=== PATIENT | female | born 1995 ===

== ENCOUNTER 2016-09-05 21:14 | Emergency (ER) | payer MEDICAID ==
[2016-09-05 21:23] VITALS: RESP 16
--- NOTE | 2016-09-05 22:32 | ED PDOC ---
HPI: Female Pain Time Seen by Provider: 09/05/16 21:47 Chief Complaint (Nursing): Female Genitourinary Chief Complaint (Provider): Pelvic Pain History Per: Patient History/Exam Limitations: no limitations Onset/Duration Of Symptoms: Days (7) Current Symptoms Are (Timing): Still Present Severity: Moderate Quality Of Discomfort: "Pain" Additional Complaint(s): Carolina Rodriges is a 21 y/o female presenting to the ER on 09/05/2016 with complaints of pelvic pain for one week. Patient states she was seen at [facility] in [place], [place], for similar symptoms. She was told she may be but a diagnosis was questionable. She had an ultrasound and Beta-HCG done which showed questionable findings and low levels, respectively. She was originally admitted that day for Bipolar Disorder but was clear for discharge after no findings were present. 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 She is also complaining of abdominal contractions as well as back pain but denies any vaginal bleeding, discharge, fever, or vomiting. This is the patient's first alleged . Past Medical History Reviewed: Historical Data, Nursing Documentation, Vital Signs Vital Signs: Last Vital Signs Temp 98.6 F 09/05/16 21:19 Pulse 94 H 09/05/16 21:19 Resp 16 09/05/16 21:19 BP 153/69 H 09/05/16 21:19 Pulse Ox 100 09/05/16 21:19 - Medical History PMH: Anemia - Surgical History Surgical History: No Surg Hx - Family History Family History: States: Unknown Family Hx - Social History Current smoker - smoking cessation education provided: No Alcohol: None Drugs: Denies - Allergies Allergies/Adverse Reactions: Allergies Allergy/AdvReac Type Severity Reaction Status Date / Time aloe vera Allergy RASH Verified 09/05/16 21:19 shrimp Allergy PAIN Verified 09/05/16 21:19 Review of Systems ROS Statement: Except As Marked, All Systems Reviewed And Found Negative Constitutional: Negative for: Fever Gastrointestinal: Negative for: Vomiting Genitourinary Female: Positive for: Pelvic Pain. Negative for: Vaginal Discharge, Vaginal Bleeding Musculoskeletal: Positive for: Back Pain Physical Exam - Reviewed Nursing Documentation Reviewed: Yes Vital Signs Reviewed: Yes - Physical Exam Appears: Positive for: Non-toxic, No Acute Distress Head Exam: Positive for: ATRAUMATIC, NORMOCEPHALIC Skin: Positive for: Normal Color. Negative for: Rash Eye Exam: Positive for: Normal appearance, EOMI, PERRL Neck: Positive for: Normal, Painless ROM, Supple Cardiovascular/Chest: Positive for: Regular Rate, Rhythm. Negative for: Murmur Respiratory: Positive for: Normal Breath Sounds. Negative for: Wheezing, Respiratory Distress Gastrointestinal/Abdominal: Positive for: Normal Exam, Soft. Negative for: Tenderness, Distended, Guarding Extremity: Positive for: Normal ROM. Negative for: Deformity, Swelling Neurologic/Psych: Positive for: Alert, Oriented. Negative for: Motor/Sensory Deficits - Laboratory Results Result Diagrams: 09/05/16 22:37 09/05/16 22:27 - ECG O2 Sat by Pulse Oximetry: 100 Medical Decision Making Medical Decision Makin:47 Initial Impression- Pelvic Pain. Differential diagnosis includes but is not limited to- ectopic , incomplete , threatened miscarriage, demise, UTI. Initial Plan- * Type and Screen * BMP * Serum * Urine Dip * Urine Preg * CBC w/ differential * US OB Transvaginal COMPARISON: No relevant prior studies available. FINDINGS: Gestation: A single intrauterine gestation is identified with a crown-rump length measuring 5 mm, corresponding to an approximate gestational age of 6 weeks and one day. The mean gestational sac size measures 17 mm, corresponding to an approximate gestational age of 6 weeks and 0 days. A yolk sac is detected. cardiac activity is identified at a rate of 118 beats per minute. No implantation hemorrhage is detected. Placenta/amniotic fluid: Cannot be adequately evaluated due to the early gestational age. Uterus/cervix: Cervix measures 3.5 cm in length and is closed. Ovaries: The right ovary is unremarkable in echogenicity and size measuring 2.5 x 2.2 x 1.9 cm. The left ovary is enlarged measuring 4 x 1.5 x 3.6 cm. A rounded focus of decreased echogenicity is identified within the left ovary measuring 2 cm in greatest dimension, possibly a hemorrhagic cyst. Free fluid: No free fluid. IMPRESSION: Single intrauterine gestation with an approximate gestational age of 6 weeks and 1 day. cardiac activity is identified. Findings within the left ovary, possibly representing a hemorrhagic cyst Documented by Demetrius Garner, acting as a scribe for Nell Kaur MD. All medical record entries made by the Scribe were at my direction and personally dictated by me. I have reviewed the chart and agree that the record accurately reflects my personal performance of the history, physical exam, medical decision making, and the department course for this patient. I have also personally directed, reviewed, and agree with the discharge instructions and disposition. Disposition - Clinical Impression Clinical Impression: Abdominal pain affecting , Abdominal pain during intrauterine - Patient ED Disposition Is Patient to be Admitted: No Doctor Will See Patient In The: Office Counseled Patient/Family Regarding: Studies Performed, Diagnosis, Need For Followup - Disposition Referrals: [facility] [Outside] Disposition: Routine/Home Disposition Time: 23:55 Condition: GOOD Additional Instructions: Follow up with your [facility] in 1 week. Take vitamins. Instructions: Threatened Miscarriage (ED)
[2016-09-05 22:46] LABS: BASO % 0.4 % (0.0-2.0); EOS # 0.1 K/uL (0.0-0.7); EOS % 1.4 % (0.0-4.0); HEMOGLOBIN 10.1 g/dL (12.0-16.0); LYMPH # 1.6 K/uL (1.0-4.3); LYMPH % 20.1 % (20.0-40.0); MEAN CELL VOLUME 64.7 fl (81.0-99.0); MEAN CORPUSCULAR HEMOGLOBIN 20.2 pg (27.0-31.0); MEAN CORPUSCULAR HGB CONC 31.2 g/dL (33.0-37.0); MEAN PLATELET VOLUME 8.4 fl (7.2-11.7); MONO # 0.8 K/uL (0.0-0.8); MONO % 9.7 % (0.0-10.0); NEUT # 5.4 K/uL (1.8-7.0); NEUT % 68.4 % (50.0-75.0); RBC 4.99 Mil/uL (3.80-5.20); RED CELL DISTRIBUTION WIDTH 16.2 % (11.5-14.5)
[2016-09-05 23:16] LABS: BLOOD UREA NITROGEN 10 mg/dl (7-17); CALCIUM 8.9 mg/dL (8.4-10.2); GFR AFRICAN-AMERICAN > 60; GFR NON-AFRICAN AMERICAN > 60
--- NOTE | 2016-09-05 23:51 | US ---
EXAM: US , Transvaginal CLINICAL HISTORY: 21 years old, female; Pain; Other: Cramps; Gestational age or lmp: 07/31/16; ; Additional info: Pelvic pain preg TECHNIQUE: Real-time transvaginal obstetrical ultrasound of the maternal pelvis and a first trimester with image documentation. Transvaginal imaging was used for better evaluation of the fetus and adnexa. COMPARISON: No relevant prior studies available. FINDINGS: Gestation: A single intrauterine gestation is identified with a crown-rump length measuring 5 mm, corresponding to an approximate gestational age of 6 weeks and one day. The mean gestational sac size measures 17 mm, corresponding to an approximate gestational age of 6 weeks and 0 days. A yolk sac is detected. cardiac activity is identified at a rate of 118 beats per minute. No implantation hemorrhage is detected. Placenta/amniotic fluid: Cannot be adequately evaluated due to the early gestational age. Uterus/cervix: Cervix measures 3.5 cm in length and is closed. Ovaries: The right ovary is unremarkable in echogenicity and size measuring 2.5 x 2.2 x 1.9 cm. The left ovary is enlarged measuring 4 x 1.5 x 3.6 cm. A rounded focus of decreased echogenicity is identified within the left ovary measuring 2 cm in greatest dimension, possibly a hemorrhagic cyst. Free fluid: No free fluid. IMPRESSION: Single intrauterine gestation with an approximate gestational age of 6 weeks and 1 day. cardiac activity is identified. Findings within the left ovary, possibly representing a hemorrhagic cyst.
[2016-09-06 00:41] VITALS: BP 133/68; PULSE 77; TEMP 97.9; O2SAT 98
== END 2016-09-06 00:05 | disposition home or self-care (01) ==
LOC: H.ER 21:14
DX: O26.899 Other specified pregnancy related conditions, unspecified trimester (principal); Z3A.01 Less than 8 weeks gestation of pregnancy; F31.9 Bipolar disorder, unspecified